=== PATIENT | female | born 1950 | race Caucasian/White ===

== ENCOUNTER 2024-07-23 12:59 | Emergency (ER) | payer MEDICARE, MEDICAID, SELFPAY ==
[2024-07-23 13:38] VITALS: BP 136/75; PULSE 78; RESP 18; TEMP 36.8; O2SAT 96; BMI 31.1
--- NOTE | 2024-07-23 13:53 | PD.EDRME ---
Rapid Medical Screening Exam RME Arrival date/time: 07/23/24 12:59 73-year-old female presents emergency department with complaints of sores and pain to her perineum ongoing for the last 2 months. Patient reports she has taken 2 course of antibiotics Chief Complaint: General Adult/Misc Complain Time Seen by Provider: 07/23/24 13:33 Vital signs: Vital Signs Temperature 98.2 F 07/23/24 13:38 Pulse Rate 78 07/23/24 13:38 Respiratory Rate 18 07/23/24 13:38 Blood Pressure 136/75 H 07/23/24 13:38 Pulse Oximetry (%) 96 07/23/24 13:38 Oxygen Delivery Method Room Air 07/23/24 13:38
[2024-07-23 14:22] LABS: Basophils % (Auto) 0 % (0-2.5); Eosinophils # (Auto) 0.2 Thou/mm3 (0.0-0.5); Eosinophils % (Auto) 2 % (0-10); Hematocrit 43.3 % (36.0-46.0); Hemoglobin 15.1 g/dL (12.0-16.0); Immature Granulocytes % (Auto) 0 % (0-0); Immature Granulocytes Auto 0.03 Thou/mm3 (0.00-0.00); Lymphocytes # (Auto) 3.3 Thou/mm3 (1.0-4.8); Lymphocytes % (Auto) 29 % (10-50); Mean Corpuscular HGB Conc 34.9 g/dl (31.0-37.0); Mean Corpuscular Hemoglobin 30.8 pg (25.0-35.0); Mean Corpuscular Volume 88 fL (80-100); Monocytes # (Auto) 0.8 Thou/mm3 (0.0-0.8); Monocytes % (Auto) 7 % (0-12); Neutrophils # (Auto) 6.9 Thou/mm3 (1.8-7.7); Neutrophils % (Auto) 61 % (37-80); Nucleated Red Blood Cell % 0 /100 WBC (0); Platelet Count 166 Thou/mm3 (140-440); RDW Standard Deviation 40.1 fL (36.4-46.3); White Blood Count 11.4 Thou/mm3 (3.6-11.0)
[2024-07-23 14:37] LABS: Alanine Aminotransferase 19 U/L (10-49); Albumin, Serum 4.5 gm/dL (3.4-4.8); Albumin/Globulin Ratio 1.6 (1.2-2.2); Alkaline Phosphatase 89 U/L (46-116); Anion Gap 9 (7-16); Aspartate Amino Transferase 21 U/L (0-34); BUN/Creatinine Ratio 21 Ratio (12-20); Bilirubin,Total 0.9 mg/dL (0.3-1.2); Blood Urea Nitrogen 17 mg/dL (9-23); Calcium 10.5 mg/dL (8.3-10.6); Calcium (Corrected) 10.5 mg/dL (8.5-10.1); Carbon Dioxide 26.4 mMol/L (20.0-31.0); Chloride 107 mMol/L (98-107); Creatinine (Component) 0.8 mg/dL (0.6-1.3); Globulin 2.9 gm/dL (2.3-3.5); Glucose 92 mg/dL (74-106); Osmolality,Calculated 284 (275-295); Potassium 4.3 mMol/L (3.4-5.1); Sodium 142 mMol/L (136-145); Total Protein 7.4 gm/dL (5.7-8.2); eGFR > 60 See Note
[2024-07-23 14:44] LABS: Collection Type, Urine Clean Catch
[2024-07-23 14:50] LABS: Bacteria,Urine Rare; Bilirubin,Urine Negative (Negative); Blood,Urine Trace (Negative); Clarity,Urine Clear (Clear/Hazy); Color,Urine Lt-Yellow (Lt Yel-Yel); Glucose, Urine Negative (Negative); Ketones,Urine Negative (Negative); Leukocyte Esterase,Urine Negative (Negative); Nitrite,Urine Negative (Negative); PH,Urine 5.5 (5.0-7.0); Protein,Urine Negative (Neg - Trace); RBC,Urine 1 /hpf (0-3); Specific Gravity,Urine 1.012 (1.001-1.035); Squamous Epithelial Cell,Urine < 1 /hpf (0-5); Urobilinogen,Urine Negative mg/dL (0.0-1.0); WBC,Urine 1 /hpf (0-5)
--- NOTE | 2024-07-23 18:15 | PC.NURSE ---
Patient walked out, wait has been too long, per son will take patient to another facility.
== END 2024-07-23 18:14 | disposition left against medical advice (07) ==
PROVIDERS: Nurse Practitioner Primary Care; Emergency Provider Emergency Medicine; PCP Nurse Practitioner Family
DX: R10.2 Pelvic and perineal pain (principal); Z53.29 Procedure and treatment not carried out because of patient's decision for other reasons
CPT/HCPCS: 36415; 80053; 81001; 85025; 87040; 87086; 99281

== ENCOUNTER → 2024-07-30 | Outpatient (CLI) | payer MEDICARE, MEDICAID, SELFPAY ==
--- NOTE | 2024-07-30 13:20 | XR_ITS ---
Examination: Bone densitometry Date and time of exam:July 30, 2024 at 12:52 PM INDICATIONS: Menopause age 47, family history, mother hip fracture, smoking history 50 years Technique: Lumbar spine and hip total bone mineralization values of an calculated. Peak reference and age match control results have been displayed. Findings: Lumbar spine total bone mineralization is0.731 gm/cm2. This is 2.9 standard deviations below peak reference. This is 0.5 standard deviations below age-matched controls. Hip total bone mineralization is 0.714 gm/cm2 This is 1.9 standard deviations below peak reference. This is 0.1 standard deviations below age-matched controls Impression: There is osteoporosis based on lumbar spine measurements. There is osteopenia based on hip measurements
== END | disposition home or self-care (01) ==
PROVIDERS: PCP Nurse Practitioner Family; Referring Provider Nurse Practitioner Family; Visit Provider Nurse Practitioner Family
DX: M81.0 Age-related osteoporosis without current pathological fracture (principal); M85.88 Other specified disorders of bone density and structure, other site
CPT/HCPCS: 77080

== ENCOUNTER → 2024-08-10 | Outpatient (CLI) | payer MEDICARE, SELFPAY | END | disposition home or self-care (01) | PROVIDERS: PCP Family Medicine; Referring Provider Family Medicine; Visit Provider Student in an Organized Health Care Education/Training Program | DX: K61.0 Anal abscess (principal); L98.411 Non-pressure chronic ulcer of buttock limited to breakdown of skin; F17.200 Nicotine dependence, unspecified, uncomplicated; I25.10 Atherosclerotic heart disease of native coronary artery without angina pectoris; I10 Essential (primary) hypertension; M19.039 Primary osteoarthritis, unspecified wrist | CPT/HCPCS: 99213; G0463 ==

== ENCOUNTER → 2024-08-15 | Outpatient (CLI) | payer MEDICARE, SELFPAY | END | disposition home or self-care (01) | LOC: SWHD 09:53 | PROVIDERS: PCP Nurse Practitioner Family; Referring Provider Nurse Practitioner Family; Visit Provider Surgery | DX: L98.411 Non-pressure chronic ulcer of buttock limited to breakdown of skin (principal); F17.200 Nicotine dependence, unspecified, uncomplicated; I25.10 Atherosclerotic heart disease of native coronary artery without angina pectoris; I10 Essential (primary) hypertension; M19.039 Primary osteoarthritis, unspecified wrist | CPT/HCPCS: 99213; A9270; G0463 ==

== ENCOUNTER → 2024-08-22 | Outpatient (CLI) | payer MEDICARE, SELFPAY | END | disposition home or self-care (01) | LOC: SWHD 09:29 | PROVIDERS: PCP Nurse Practitioner Family; Referring Provider Nurse Practitioner Family; Visit Provider Student in an Organized Health Care Education/Training Program | DX: L98.411 Non-pressure chronic ulcer of buttock limited to breakdown of skin (principal); I25.10 Atherosclerotic heart disease of native coronary artery without angina pectoris; I10 Essential (primary) hypertension; F17.200 Nicotine dependence, unspecified, uncomplicated; M19.039 Primary osteoarthritis, unspecified wrist; A60.09 Herpesviral infection of other urogenital tract; R31.9 Hematuria, unspecified; Z91.199 Patient's noncompliance with other medical treatment and regimen due to unspecified reason | CPT/HCPCS: 99214; A9270; G0463 ==

== ENCOUNTER → 2024-08-23 | Outpatient (CLI) | payer MEDICARE, MEDICAID, SELFPAY ==
--- NOTE | 2024-08-23 14:15 | XR_ITS ---
Examination: Screening digital mammography, bilateral Computer aided detection 3-D breast Tomosynthesis, bilateral Date and time of exam: August 23, 2024 1434 hours Compared to mammograms dating to June 15, 2023 Indication: Screening Technique: Nonmagnified MLO, CC views of the breasts to been obtained, reconstructed from 3-D Tomosynthesis images. R2 computer aided detection program utilized for evaluation of suspicious masses and/or abnormal calcifications. 3-D Tomosynthesis images obtained. Findings: Scattered areas of fibroglandular density. Benign calcifications. No interval suspicious masses Impression: BI-RADS category II: Benign Findings. Recommend 1 year follow-up mammogram.
== END | disposition home or self-care (01) ==
PROVIDERS: PCP Nurse Practitioner Family; Referring Provider Nurse Practitioner Family; Visit Provider Nurse Practitioner Family
DX: Z12.31 Encounter for screening mammogram for malignant neoplasm of breast (principal); R92.323 Mammographic fibroglandular density, bilateral breasts; R92.1 Mammographic calcification found on diagnostic imaging of breast
CPT/HCPCS: 77063; 77067

== ENCOUNTER → 2024-09-05 | Outpatient (CLI) | payer MEDICARE, SELFPAY | END | disposition home or self-care (01) | LOC: SWHD 10:02 | PROVIDERS: PCP Nurse Practitioner Family; Referring Provider Nurse Practitioner Family; Visit Provider Student in an Organized Health Care Education/Training Program | DX: L97.821 Non-pressure chronic ulcer of other part of left lower leg limited to breakdown of skin (principal); I10 Essential (primary) hypertension; E11.69 Type 2 diabetes mellitus with other specified complication; E03.9 Hypothyroidism, unspecified; L85.3 Xerosis cutis; F03.90 Unspecified dementia, unspecified severity, without behavioral disturbance, psychotic disturbance, mood disturbance, and anxiety; R60.0 Localized edema | CPT/HCPCS: 99213; G0463 ==

== ENCOUNTER → 2024-09-19 | Outpatient (CLI) | payer MEDICARE, SELFPAY | END | disposition home or self-care (01) | LOC: SWHD 11:00 | PROVIDERS: PCP Nurse Practitioner Family; Referring Provider Nurse Practitioner Family; Visit Provider Student in an Organized Health Care Education/Training Program | DX: S31.829A Unspecified open wound of left buttock, initial encounter (principal); S31.819A Unspecified open wound of right buttock, initial encounter; X58.XXXA Exposure to other specified factors, initial encounter; R21 Rash and other nonspecific skin eruption; I10 Essential (primary) hypertension; E11.69 Type 2 diabetes mellitus with other specified complication; E03.9 Hypothyroidism, unspecified; L85.3 Xerosis cutis; R60.0 Localized edema; F03.90 Unspecified dementia, unspecified severity, without behavioral disturbance, psychotic disturbance, mood disturbance, and anxiety | CPT/HCPCS: 99213; G0463 ==

== ENCOUNTER → 2024-10-03 | Outpatient (CLI) | payer MEDICARE, SELFPAY | END | disposition home or self-care (01) | PROVIDERS: PCP Nurse Practitioner Family; Referring Provider Nurse Practitioner Family; Visit Provider Student in an Organized Health Care Education/Training Program | DX: S31.819A Unspecified open wound of right buttock, initial encounter (principal); X58.XXXA Exposure to other specified factors, initial encounter; R21 Rash and other nonspecific skin eruption; I10 Essential (primary) hypertension; E11.69 Type 2 diabetes mellitus with other specified complication; E03.9 Hypothyroidism, unspecified; L85.3 Xerosis cutis; R60.0 Localized edema; F03.90 Unspecified dementia, unspecified severity, without behavioral disturbance, psychotic disturbance, mood disturbance, and anxiety | CPT/HCPCS: 99213; A9270; G0463 ==

== ENCOUNTER → 2024-10-17 | Outpatient (CLI) | payer MEDICARE, SELFPAY | END | disposition home or self-care (01) | LOC: SWHD 10:08 | PROVIDERS: PCP Nurse Practitioner Family; Referring Provider Nurse Practitioner Family; Visit Provider Student in an Organized Health Care Education/Training Program | DX: S31.829A Unspecified open wound of left buttock, initial encounter (principal); S31.819A Unspecified open wound of right buttock, initial encounter; X58.XXXA Exposure to other specified factors, initial encounter; R21 Rash and other nonspecific skin eruption; I10 Essential (primary) hypertension; E11.69 Type 2 diabetes mellitus with other specified complication; E03.9 Hypothyroidism, unspecified; L85.3 Xerosis cutis; R60.0 Localized edema; F03.90 Unspecified dementia, unspecified severity, without behavioral disturbance, psychotic disturbance, mood disturbance, and anxiety | CPT/HCPCS: 99212; A9270; G0463 ==

== ENCOUNTER → 2024-10-24 | Outpatient (CLI) | payer MEDICARE, SELFPAY | END | disposition home or self-care (01) | LOC: SWHD 10:07 | PROVIDERS: PCP Nurse Practitioner Family; Referring Provider Nurse Practitioner Family; Visit Provider Student in an Organized Health Care Education/Training Program | DX: S31.829A Unspecified open wound of left buttock, initial encounter (principal); S31.819A Unspecified open wound of right buttock, initial encounter; X58.XXXA Exposure to other specified factors, initial encounter; R21 Rash and other nonspecific skin eruption; I10 Essential (primary) hypertension; E11.69 Type 2 diabetes mellitus with other specified complication; E03.9 Hypothyroidism, unspecified; L85.3 Xerosis cutis; R60.0 Localized edema; F03.90 Unspecified dementia, unspecified severity, without behavioral disturbance, psychotic disturbance, mood disturbance, and anxiety | CPT/HCPCS: 99213; A9270; G0463 ==

== ENCOUNTER → 2024-11-09 | Outpatient (CLI) | payer MEDICARE, SELFPAY | END | disposition home or self-care (01) | LOC: SWHD 10:28 | PROVIDERS: PCP Nurse Practitioner Family; Referring Provider Nurse Practitioner Family; Visit Provider Surgery | DX: S31.829A Unspecified open wound of left buttock, initial encounter (principal); S31.819A Unspecified open wound of right buttock, initial encounter; X58.XXXA Exposure to other specified factors, initial encounter; R21 Rash and other nonspecific skin eruption; I10 Essential (primary) hypertension; E11.69 Type 2 diabetes mellitus with other specified complication; E03.9 Hypothyroidism, unspecified; L85.3 Xerosis cutis; R60.0 Localized edema; F03.90 Unspecified dementia, unspecified severity, without behavioral disturbance, psychotic disturbance, mood disturbance, and anxiety | CPT/HCPCS: 99213; G0463 ==

== ENCOUNTER → 2024-11-22 | Outpatient (CLI) | payer MEDICARE, SELFPAY | END | disposition home or self-care (01) | LOC: SWHD 10:11 | PROVIDERS: PCP Nurse Practitioner Family; Referring Provider Nurse Practitioner Family; Visit Provider Student in an Organized Health Care Education/Training Program | DX: S31.829A Unspecified open wound of left buttock, initial encounter (principal); S31.819A Unspecified open wound of right buttock, initial encounter; X58.XXXA Exposure to other specified factors, initial encounter; R21 Rash and other nonspecific skin eruption; I10 Essential (primary) hypertension; E11.69 Type 2 diabetes mellitus with other specified complication; E03.9 Hypothyroidism, unspecified; L85.3 Xerosis cutis; R60.0 Localized edema; F03.90 Unspecified dementia, unspecified severity, without behavioral disturbance, psychotic disturbance, mood disturbance, and anxiety | CPT/HCPCS: 99213; G0463 ==

== ENCOUNTER → 2024-11-29 | Outpatient (CLI) | payer MEDICARE, SELFPAY | END | disposition home or self-care (01) | LOC: SWHD 14:55 | PROVIDERS: PCP Nurse Practitioner Family; Referring Provider Nurse Practitioner Family; Visit Provider Surgery | DX: S31.829A Unspecified open wound of left buttock, initial encounter (principal); S31.819A Unspecified open wound of right buttock, initial encounter; X58.XXXA Exposure to other specified factors, initial encounter; R21 Rash and other nonspecific skin eruption; I10 Essential (primary) hypertension; E11.69 Type 2 diabetes mellitus with other specified complication; E03.9 Hypothyroidism, unspecified; L85.3 Xerosis cutis; R60.0 Localized edema; F03.90 Unspecified dementia, unspecified severity, without behavioral disturbance, psychotic disturbance, mood disturbance, and anxiety; F17.200 Nicotine dependence, unspecified, uncomplicated | CPT/HCPCS: 99213; A9270; G0463 ==

== ENCOUNTER → 2025-07-02 | Outpatient (CLI) | payer MEDICARE, MEDICAID, SELFPAY ==
--- NOTE | 2025-07-02 13:30 | XR_ITS ---
Examination: CT high-resolution low-dose chest, without contrast. 2-D sagittal reconstructions. 2-D coronal reconstructions. 3-D reconstructions. Date and time of exam: July 02, 2025, 1345 hours INDICATIONS: Nicotine dependence, smoking history 35 years cysts CTDI: vol (mGy): 11.4 DLP: (mGycm): 422 Technique: Multiple 1.25 mm axial sections of the chest have been obtained. 2-D sagittal and coronal reconstructions have been obtained. 3-D reconstructions have been obtained. Low dose protocols were performed. One or more of the following dose reduction techniques were used; automated exposure control, adjustment of the mA and/or KV according to patient size, use of iterative reconstruction technique. Findings: No thoracic aortic aneurysm dilatation Pulmonary artery segments are not enlarged Heavy calcification left anterior descending coronary artery No pneumonia or pulmonary edema pleural disease or pulmonary mass lesions 6.8 cm liver cyst and smaller cysts Spleen is not enlarged No pancreatic mass Moderate renal scarring Multiple tiny right renal calculi 1 to 3 mm Moderate osteopenia IMPRESSION: No mediastinal lymphadenopathy No pneumonia, pulmonary edema, pleural disease or pulmonary nodules Multiple nonobstructing right renal calculi
== END | disposition home or self-care (01) ==
LOC: CCTX 13:31
PROVIDERS: PCP Nurse Practitioner Family; Referring Provider Physician Assistant; Visit Provider Physician Assistant
DX: Z72.0 Tobacco use (principal); N20.0 Calculus of kidney
CPT/HCPCS: 71271

== ENCOUNTER → 2025-07-18 | Outpatient (CLI) | payer MEDICARE, SELFPAY | END | disposition home or self-care (01) | PROVIDERS: PCP Nurse Practitioner Family; Referring Provider Nurse Practitioner Family; Visit Provider Student in an Organized Health Care Education/Training Program | DX: S31.40XA Unspecified open wound of vagina and vulva, initial encounter (principal); S30.820A Blister (nonthermal) of lower back and pelvis, initial encounter; X58.XXXA Exposure to other specified factors, initial encounter; R23.4 Changes in skin texture; M19.039 Primary osteoarthritis, unspecified wrist; I25.10 Atherosclerotic heart disease of native coronary artery without angina pectoris; I10 Essential (primary) hypertension; Z72.0 Tobacco use | CPT/HCPCS: 99214; A9270; G0463 ==